=== PATIENT | male | born 1980 | race Caucasian/White ===

== ENCOUNTER 2017-05-08 18:47 | Emergency (ER) | payer MEDICAID ==
[~2017-05-08] VITALS: Ht 177.8 cm; Wt 65.8 kg
[~2017-05-08 18:47] MED LIST: PHEN100C4 PO; QUET200T PO; RISP3TAB5 PO
--- NOTE | 2017-05-08 19:10 | NUR ---
pending blood draw, endorsed to 7pm nurse Breanna accordingly-patient is resting comfortably in bed with eyes closed, MAR, respiration:easy, pt voided by urinal upon arrival to ER
--- NOTE | 2017-05-08 19:15 | NUR ---
Received report, assumed care of pt at this time. Pt resting in position of comfort for self with eyes closed, resp even and unlabored. No obvious signs of distress. Awaiting lab draw
[2017-05-08 19:40] LABS: CARBON DIOXIDE 30 mmol/L (21-32); CHLORIDE 102 mmol/L (98-107); CREATININE 0.6 mg/dL (0.6-1.3); GLUCOSE 120 mg/dL (74-106); POTASSIUM 3.8 mmol/L (3.5-5.1); UREA NITROGEN, BLOOD 9 mg/dL (7-18)
[2017-05-08 19:46] LABS: ALANINE AMINOTRANSFERASE 54 U/L (16-63); ALKALINE PHOSPHATASE 68 U/L (50-136); ASPARTATE AMINOTRANSFERASE 74 U/L (15-37); BILIRUBIN,DIRECT 0.2 mg/dL (0.0-0.2); BILIRUBIN,TOTAL 0.6 mg/dL (0.2-1.0); LIPASE 240 U/L (73-393)
--- NOTE | 2017-05-08 20:33 | NUR ---
Wound to left palm cleaned, triple antibiotic ointment (per Dr. Eldridge verbal order) applied and simple drsg.
[2017-05-08 21:14] LABS: HEMATOCRIT 31.6 % (40-50); HEMOGLOBIN 9.9 G/DL (14.0-18.0); MEAN CORPUSCULAR VOLUME 68.8 FL (82.0-92.0); RED BLOOD CELL COUNT(AUTO) 4.59 MIL/UL (4.7-6.1); WHITE BLOOD COUNT (AUTO) 2.6 K/UL (4.0-11.2)
[2017-05-08 21:15] LABS: MEAN CORPUSCULAR HEMOGLOBIN 21.6 UUG (27.0-31.0); MEAN CORPUSCULAR HGB CONC 31 g/dL (32.0-37.0); PLATELET COUNT (AUTO) 267 K/UL (150-450)
--- NOTE | 2017-05-08 22:05 | NUR ---
Pt resting in position of comfort for self with eyes closed, appears asleep. Resp even and unlabored. No obvious signs of distress at this time.
--- NOTE | 2017-05-08 23:09 | NUR ---
pt woke up and ambulated to and from br with one person assist. Pt given ice per his request and is tolerating. Pt repositioned for comfort. No complaints at this time
--- NOTE | 2017-05-08 23:30 | NUR ---
caught pt walking through ambulance entrance to ER. Asked him where he was going, he stated " I'm amanda make like a tree and leaf." Pt cont to walk out the outer double doors with steady gait. Dr. Eldridge notified.
[2017-05-09 08:05] LABS: BAND % (MANUAL) 1 % (0-10); EOSINOPHILS % (MANUAL) 1 % (0-8); LYMPHOCYTES % (MANUAL) 38 % (20-40); MONOCYTES % (MANUAL) 10 % (2-10); NEUTROPHILS % (MANUAL) 50 % (42-75)
== END 2017-05-08 23:39 | disposition left against medical advice (07) ==
LOC: ER 18:58
DX: F10.129 Alcohol abuse with intoxication, unspecified (principal); D64.9 Anemia, unspecified; R79.89 Other specified abnormal findings of blood chemistry; Z59.0 Homelessness
CPT/HCPCS: 36415; 80048; 80076; 80185; 83690; 85025; 99284; A4663; G0480

== ENCOUNTER 2017-05-09 01:53 | Emergency (ER) | payer MEDICAID ==
[~2017-05-09] VITALS: Ht 172.7 cm; Wt 65.8 kg
--- NOTE | 2017-05-09 02:15 | NUR ---
Pt biba for etoh. Pt was picked up at [facility]. Pt was here earlier for same complaint and eloped. Pt resting in position of comfort for self. Resp even and unlabored. Able to wake pt with verbal stimuli at which the pt becomes uncooperative yelling out and at staff.
--- NOTE | 2017-05-09 03:40 | NUR ---
Pt resting in position of comfort for self with eyes closed, resp even and unlabored. No obvious signs of distress at this time.
[2017-05-09] MEDS ORDERED: PHENYTOIN SODIUM EXTENDED 100 MG CAPSULE.SA PO ONE ×4 (04:30→08:51)
--- NOTE | 2017-05-09 04:44 | NUR ---
pt woke up to take his dilantin and then laid back down to sleep. Pt has no complaints at this time
[2017-05-09] MEDS ORDERED: PHENYTOIN SODIUM EXTENDED 100 MG CAPSULE.SA PO SCH ×2 (06:30→08:30)
--- NOTE | 2017-05-09 06:39 | NUR ---
Attempted to medicate pt with dilantin, not enough in pyxis. Nursing microbiology supervisor called, was instructed to wait and call pharmacy when they arrive.
--- NOTE | 2017-05-09 07:11 | NUR ---
pt woke up yelling out. Pt c/o severe left elbow pain. Bruising and swelling noted. Dr. Chandler to bedside to evaluate. Awaiting further orders.
[2017-05-09] MEDS ORDERED: HYDROCODONE/APAP 10-325 MG TABLET PO ONE (07:15)
[2017-05-09] MEDS ORDERED: HYDROCODONE/APAP 10-325 MG TABLET ONE (07:28)
[2017-05-09] MEDS ORDERED: HYDROMORPHONE 1 MG/1 ML DISP.SYRIN IM ONE (07:30)
[2017-05-09] MEDS ORDERED: PROMETHAZINE HCL 25 MG/1 ML VIAL IM ONE (07:30)
--- NOTE | 2017-05-09 07:31 | NUR ---
Pt requested pain medication. Dr. Chandler notified. Pt refused norco and requested a "shot" of medicine because it works faster. Dr. Chandler notified and pt medicated with injection. xrays obtained. Pt reposition for comfort.
[2017-05-09] MEDS ORDERED: PROMETHAZINE HCL 25 MG/1 ML VIAL ONE (07:36)
[2017-05-09] MEDS ORDERED: HYDROMORPHONE 2 MG/1 ML DISP.SYRIN ONE (07:37)
--- NOTE | 2017-05-09 07:39 | NUR ---
Report given to DOMENIC Triana. I relinquish care of pt at this time.
--- NOTE | 2017-05-09 08:45 | NUR ---
pt requesting md nelson notified.
--- NOTE | 2017-05-09 08:47 | NUR ---
hospital juicee and cracker provided per pt request.
[2017-05-09] MEDS ORDERED: LORAZEPAM 0.5 MG TABLET PO ONE (09:00)
--- NOTE | 2017-05-09 09:01 | NUR ---
pt says feels better to be d/kehinde. Patient discharged to home in stable conditon. Written and verbal after care instructions given. Patient verbalizes understanding of instructions.pt walks in steady gait.
[2017-05-09 09:02] VITALS: BP 109/71
[2017-05-09] MEDS ORDERED: LORAZEPAM 1 MG TABLET ONE (09:05)
== END 2017-05-09 09:05 | disposition home or self-care (01) ==
LOC: ER 01:53
DX: F10.129 Alcohol abuse with intoxication, unspecified (principal); Z59.0 Homelessness
CPT/HCPCS: 73080; 96372 ×2; 99284; A4663; J1170; J2550